=== PATIENT | female | born 1960 | race Hispanic/Latino ===

== ENCOUNTER 2018-07-27 12:45 | Outpatient (CLI) | payer OTHER ==
--- NOTE | 2018-07-27 14:30 | RAD ---
RIGHT KNEE FOUR VIEWS: History: Knee pain. Comparison: None. FINDINGS: Small joint effusion. Large osteophytes of the patellofemoral joint. There is moderate medial compart ment joint space narrowing with flattening of the articular surfaces and large osteophyte formation. Small lateral compartment osteophytes are present. No acute displaced fracture or malalignment. IMPRESSION: Advanced degenerative changes. POS: [facility]
== END 2018-07-27 12:46 | disposition home or self-care (01) ==
LOC: NAV RAD 12:45
PROVIDERS: ATTEND Nurse Practitioner Family
DX: M25.561 Pain in right knee (principal); M17.11 Unilateral primary osteoarthritis, right knee

== ENCOUNTER 2021-04-02 20:34 | Emergency (ER) | payer SELFPAY ==
[2021-04-02 21:01] LABS: Bilirubin Negative (Negative); Blood, Urine Trace (Negative); Clarity Slightly Cloudy (Clear); Glucose, Urine (Dipstick) Negative (Negative); Ketone, Urine Negative (Negative); Leukocyte Large (Negative); Nitrite Negative (Negative); Protein, Urine (Dipstick) Negative (Neg-Trace); Urobilinogen 0.2 mg/dL (Less than 2); pH, Urine 5.5 (5.0-9.0)
[2021-04-02 21:03] LABS: Specific Gravity, Urine 1.026 (1.002-1.036)
[2021-04-02 21:11] LABS: Bacteria/HPF 2+ HPF (None Seen); Mucous/LPF 1+ LPF (<2+)
[2021-04-02] MEDS ORDERED: Phenazopyridine HCl 97.5 MG TABLET ONE (21:22)
[2021-04-02] MEDS ORDERED: Amoxicillin/Potassium Clav 875 MG TAB ONE (21:22)
== END 2021-04-02 22:00 | disposition home or self-care (01) ==
LOC: NAV ERS 20:34
DX: N30.00 Acute cystitis without hematuria (principal); E78.5 Hyperlipidemia, unspecified; I10 Essential (primary) hypertension
CPT/HCPCS: 51702; 81003; 81015; 87086